=== PATIENT | male | born 1990 | race African-American/Black ===

== ENCOUNTER 2020-07-22 12:16 | Emergency (ER) | payer SELFPAY ==
[~2020-07-22] VITALS: Ht 177.8 cm; Wt 59.5 kg
[2020-07-22 12:25] VITALS: TEMP 98.8
[2020-07-22] MEDS ORDERED: ZITHROMAX 250M250 MG PO ×2 (13:08→13:10)
[2020-07-22 13:29] VITALS: BP 105/70; PULSE 63
== END 2020-07-22 13:31 | disposition home or self-care (01) ==
LOC: COL.ER 12:16
DX: Z20.2 Contact with and (suspected) exposure to infections with a predominantly sexual mode of transmission (principal); F17.200 Nicotine dependence, unspecified, uncomplicated
CPT/HCPCS: J0696

== ENCOUNTER 2021-01-14 17:46 | Emergency (ER) | payer SELFPAY ==
[~2021-01-14] VITALS: Ht 177.8 cm; Wt 68.2 kg
[~2021-01-14 17:46] MED LIST: ZITHROMAX 250M250 MG PO
[2021-01-14] MEDS ORDERED: FLEXERIL 1010 MG/TAB PO (21:24)
[2021-01-14 21:30] VITALS: BP 133/81; PULSE 84; TEMP 97.9
== END 2021-01-14 21:30 | disposition home or self-care (01) ==
LOC: COL.ER 17:46
DX: M54.2 Cervicalgia (principal); M54.9 Dorsalgia, unspecified; F17.210 Nicotine dependence, cigarettes, uncomplicated; V89.2XXA Person injured in unspecified motor-vehicle accident, traffic, initial encounter